=== PATIENT | female | born 1965 | race Caucasian/White ===

== ENCOUNTER 2017-09-18 10:23 | Outpatient (CLI) | payer OTHER | END 2017-09-18 10:25 | disposition home or self-care (01) | LOC: SONOGRAMA 10:23 | DX: E04.1 Nontoxic single thyroid nodule (principal) ==

== ENCOUNTER 2021-11-11 07:57 | Outpatient (CLI) | payer OTHER | END 2021-11-11 08:07 | disposition home or self-care (01) | LOC: RX STUDY 07:57 | PROVIDERS: ATTEND Internal Medicine Gastroenterology | DX: R10.32 Left lower quadrant pain (principal); K57.30 Diverticulosis of large intestine without perforation or abscess without bleeding ==